=== PATIENT | female | born 1995 | race Caucasian/White ===

== ENCOUNTER 2016-08-08 19:49 | Emergency (ER) | payer OTHER ==
[~2016-08-08] VITALS: Ht 154.9 cm; Wt 67.3 kg
[~2016-08-08 19:49] MED LIST: ALBU8.5H4 IH; GUAI400T57 PO; IBUP-1827 PO
[2016-08-08 20:10] VITALS: BP 102/74; PULSE 61; RESP 16; O2SAT 92
[2016-08-08 21:04] LABS: BASOPHILS % (AUTO) 0.5 % (0-3); MONOCYTES % (AUTO) 6.8 % (4-12); Mean Corpuscular Hemoglobin 29.4 pg (27.0-35.0); Mean Corpuscular Volume 85.7 fL (81-100); NEUTROPHILS % (AUTO) 57.6 % (40-74); Platelet Count 355 bil/L (150-400)
[2016-08-08 21:26] LABS: Magnesium 2.1 mg/dL (1.6-2.6)
--- NOTE | 2016-08-08 22:22 | ED.REPORT ---
HPI-Abd Pain F Under 40 Date of Service Aug 08, 2016 ED Provider: Catherine Ibarra MD The patient is a 21 year old female with history of asthma who presents to the emergency department complaining of periumbilical abdominal pain that began yesterday. The pain radiates into her left and right lower quadrants. She noticed increased abdominal pain with urination. She has also noticed nausea and vomiting (yesterday). She has not vomited today. She has not had similar symptoms in the past. She denies fever, chills, diarrhea, constipation, dysuria or hematuria. Her last bowel movement was within the last few hours. She is sexually active. She denies any new sexual partners. She denies history of sexually transmitted disease. She denies abnormal vaginal discharge or bleeding. Nursing Notes Stated Complaint: ABDOMINAL PAIN Chief Complaint: Female Abdominal Pain Nursing Notes Reviewed: Yes Allergies: Coded Allergies: No Known Allergies (Verified Allergy, Unknown, 06/08/16) Scheduled PRN Albuterol HFA (Albuterol HFA) 8.5 Gm Hfa.aer.ad 1 PUFF IH Q4 PRN PRN For Wheezing Ibuprofen (Ibuprofen) 600 Mg Tablet 600 MG PO QID PRN PRN For Pain Miscellaneous Medications Guaifenesin (Guaifenesin) 400 Mg Tablet 400 MG PO General Time Seen by MD: 22:19 Chief Complaint Abdominal pain Hx Obtained From: Patient Arrived By: Walk-in Sudden in Onset?: Yes Onset Occurred: Yesterday Symptom Duration: Since onset Location: : Periumbilical Quality: Painful Radiation: : LLQ: RLQ Severity: Current: Moderate Severity: Maximum: Severe Recent Healthcare: No recent doctor visit, No recent hospitalization Similar Sx Previous: No Past Medical History Past Medical History Notes: PCP: Dr. Reyes Past Medical History Asthma Past Surgical History Reports: Tonsillectomy Smoking History Never Smoker Social History Lives with her boyfriend and his father Alcohol Use: Denies alcohol use Other Social History: Good social support, Local resident Ambulatory Status Independent Review of Systems Constitutional: Denies: Chills, Fever GI: Reports: Abdominal pain, Nausea, Vomiting, Denies: Constipation, Diarrhea Female: Denies: Dysuria, Hematuria, Vaginal bleeding - abnl, Vaginal discharge Complete sys rev & neg: except as marked. Physical Exam Initial Vital Signs Vital Signs (First) Date Time Temp Pulse Resp B/P Pulse Ox O2 Delivery O2 Flow Rate FiO2 08/08/16 20:10 36.8 61 16 102/74 92 Room Air Initial VS: Reviewed Head / Eyes: Atraumatic, Normocephalic, PERRL ENT: Mucous membranes moist, Conjunctiva normal, No scleral icterus Neck: Supple, Non-tender, Full range of motion Extremities: Vascular intact, Neuro intact, No swelling, No tenderness Skin: Warm, Dry, No cyanosis Neurologic: Alert, Oriented, Nonfocal Psychiatric: Mood/affect normal, Behavior normal, Normal thought content General/Constitutional: Awake, Alert, No acute distress, Well appearing Respiratory / Chest: Atraumatic, Breath sounds NL, Breath sounds = bilat, No respiratory distress, No rales, No rhonchi, No wheezing Abdomen: Non-tender, McBurney's non-tender, No guarding, No rebound, BS normoactive, No distention, No hernia, No palpable mass Diffuse tenderness to her lower abdomen. Back: Inspection NL, Full range of motion Female Genitourinary: Mussel Farmer present, External genitalia NL, No bleeding, No discharge, No cervical motion tend She is mostly tender over her bladder Interpretation & Diagnostics Lab Results Interpretation Result Diagram: 08/08/16205408/08/162054 Test 08/08/16 20:45 08/08/16 20:55 Hold Urine Received (Received) White Blood Count 9.7th/mm3 (3.8-10.1) Red Blood Count 4.97mil/mm3 (3.90-5.20) Hemoglobin 14.6g/dL (12.0-15.6) Hematocrit 42.6% (35.0-46.0) Mean Corpuscular Volume 85.7fL (81-100) Mean Corpuscular Hemoglobin 29.4pg (27.0-35.0) Mean Corpuscular Hemoglobin Concent 34.3% (32.0-37.0) Red Cell Distribution Width 12.0% (12.3-15.4) Platelet Count 355bil/L (150-400) Neutrophils (%) (Auto) 57.6% (40-74) Lymphocytes (%) (Auto) 34.0% (14-46) Monocytes (%) (Auto) 6.8% (4-12) Eosinophils (%) (Auto) 1.0% (0-5) Basophils (%) (Auto) 0.5% (0-3) Sodium Level 142mEq/L (134-144) Potassium Level 4.0mEq/L (3.5-5.2) Chloride Level 104mEq/L (97-108) Carbon Dioxide Level 24mmol/L (18-29) Blood Urea Nitrogen 10mg/dL (6-20) Creatinine 0.73mg/dL (0.57-1.00) Estimat Glomerular Filtration Rate 146mL/min (>59) Glucose Level 125mg/dL (60-99) Calcium Level 9.0mg/dL (8.5-10.1) Magnesium Level 2.1mg/dL (1.6-2.6) Total Bilirubin 0.3mg/dL (0.0-1.2) Aspartate Amino Transf (AST/SGOT) 19U/L (0-50) Alanine Aminotransferase (ALT/SGPT) 17U/L (0-32) Alkaline Phosphatase 89U/L (25-150) Total Protein 7.0g/dL (6.4-8.4) Albumin 4.4g/dL (3.4-5.0) Lipase 26U/L (13-60) Hold Madsen Top Tube Received (Received) Re-Eval/Medical Decision Source of Hx: Old records Re-Evaluation/Progress : Time of Eval: 22:34 Re-Evaluation/Progress Note: Discussed disposition options with the patient and her boyfriend's father. They understand and agree with plan for discharge. Counseled Regarding: Diagnosis, Lab results, Need for follow-up, When/why to return to ED Discharge & Departure Primary Impression: UTI (urinary tract infection) Urinary tract infection type: site unspecified Hematuria presence: with hematuria Qualified Code: N39.0 - Urinary tract infection, site not specified Disposition: Home Discharge Condition All VS Reviewed: Yes Condition: Stable Patient Instructions: Appendicitis (ED) Additional Instructions: Thank you for entrusting us with your care today. I believe your symptoms are related to a urinary tract infection. Take the antibiotic, Septra twice daily for 7 days as prescribed. You were given your first dose in the emergency department and will need to take the next dose tomorrow morning. Make sure to drink plenty of fluids. Followup with your regular doctor next week for re- evaluation. You need to return to the emergency department if you develop increased pain to your RLQ, increased pain with any movements, fever, chills, vomiting, or any other new or concerning symptoms. I have attached a packet for appendicitis which includes useful information about what to lookout for. Referrals: Kadie Reyes MD Attestation Portions of this note were transcribed by Chio Sepulveda. I, Dr. Ibarra personally performed the history, physical exam and medical decision-making; I reviewed and confirmed the accuracy of the information in the transcribed note. Signed by:Jaimee Echeverria, 08/08/2016 and [id number]. copies to: Kadie Reyes MD, Shawna L MD Aug 08, 2016 22:22 Chio Sepulveda Aug 08, 2016 22:32
[2016-08-08] MEDS ORDERED: SULF1TAB7 PO (22:54)
[2016-08-08] MEDS ORDERED: Trimethoprim-Sulfa 160 mg-800 mg Tablet PO ONE (22:55)
[2016-08-08 23:22] VITALS: BP 111/68; PULSE 68; RESP 16; O2SAT 98
[2016-08-08 23:39] LABS: APPEARANCE,URINE CLEAR (CLEAR,HAZY); COLOR,URINE YELLOW (YELLOW); OCCULT BLOOD,URINE MODERATE (NEGATIVE); UROBILINOGEN,URINE NORMAL (NORMAL)
== END 2016-08-08 23:23 | disposition home or self-care (01) ==
LOC: SED 19:49
DX: N39.0 Urinary tract infection, site not specified (principal); R11.2 Nausea with vomiting, unspecified; J45.909 Unspecified asthma, uncomplicated
CPT/HCPCS: 36415; 80053; 81000; 81002; 81025; 83690; 83735; 85025; 99284; G0463